=== PATIENT | male | born 1965 | race Caucasian/White ===

== ENCOUNTER 2018-07-07 00:11 | Emergency (ER) | payer BC, OTHER ==
[~2018-07-07] VITALS: Ht 188 cm; Wt 119.3 kg
[~2018-07-07 00:11] MED LIST: PROTONIX PO; SYNTHROID200 MCG PO; VYTORIN 10-101 EACH PO; ZOLOFT PO
[2018-07-07] MEDS ORDERED: KETOROLAC TROMETHAMINE 60 MG/2 ML VIAL IM ONE (01:00)
--- NOTE | 2018-07-07 03:05 | Diagnostic Imaging Report ---
EXAM: CT right knee WITHOUT contrast INDICATION: Right knee pain COMPARISON: None. TECHNIQUE: The right knee was scanned utilizing a multidetector helical scanner without administration of IV contrast. Absence of intravenous contrast decreases sensitivity for detection of focal lesions and vascular pathology. Coronal and sagittal reformations were obtained. Routine protocol was performed. IV CONTRAST: None COMPLICATIONS: None RADIATION DOSE: Total DLP: 173.2 mGy*cm Estimated effective dose: (DLP x 0.015 x size factor) mSv Dose modulation, iterative reconstruction, and/or weight based adjustment of the mA/kV was utilized to reduce the radiation dose to as low as reasonably achievable. FINDINGS: BONES: No acute osseous abnormalities. No gross evidence of hardware fracture or loosening on limited block inspector radiographs SOFT TISSUES: Extensive streak artifacts from right knee arthroplasty markedly limits evaluation of the soft tissues about the knee. Partially visualized small suprapatellar effusion. IMPRESSION: 1. Limited exam secondary to extensive artifacts from right knee arthroplasty. 2. Partially visualized suprapatellar joint effusion. 3. No definite acute osseous abnormality. Signed by: DR. Antolin Ellis MD on 07/07/2018 3:02 AM
[2018-07-07] MEDS ORDERED: NAPROXEN250 MG PO (03:24)
--- NOTE | 2018-07-07 03:26 | NUR ---
[facility] CALLED FOR DOPPLER
[2018-07-07 05:10] VITALS: BP 101/75
== END 2018-07-07 05:12 | disposition home or self-care (01) ==
LOC: ER 00:11
DX: M25.561 Pain in right knee (principal); M79.661 Pain in right lower leg; M25.461 Effusion, right knee; F17.210 Nicotine dependence, cigarettes, uncomplicated
CPT/HCPCS: 73700; 93971; 96372; 99283; J1885

== ENCOUNTER → 2020-12-09 | Day surgery (SDC) | payer BC, OTHER ==
[~2020-12-09] MED LIST changes: +CRESTOR5 MG PO; +FLOMAX0.4 MG PO; +GLUCAGON FOR INJ 1 MG VIAL ONE; +HYOSCYAMINE SULFATE 0.5 MG/ML INJ ONE; +LIDOCAINE HCL 2% LOCAL INJ 5 ML SDV VIAL INJ ONE; +NAPROXEN250 MG PO; +PROPOFOL IV EMULSION 10 MG/ML 20 ML VIAL ONE
[2020-12-09 14:40] VITALS: BP 112/82
[2020-12-09 15:15] LABS: WBC,FECAL (FECAL LACTOFERRIN) NEGATIVE (NEGATIVE)
[2020-12-10 14:02] LABS: C DIFFICILE TOXIN A&B AMP PROB NEGATIVE (NEGATIVE)
== END | disposition home or self-care (01) ==
LOC: OR 10:04
PROVIDERS: ATTEND Internal Medicine Gastroenterology
DX: K52.9 Noninfective gastroenteritis and colitis, unspecified (principal); D12.3 Benign neoplasm of transverse colon; D12.5 Benign neoplasm of sigmoid colon; K62.1 Rectal polyp; K29.70 Gastritis, unspecified, without bleeding; K21.9 Gastro-esophageal reflux disease without esophagitis; K63.89 Other specified diseases of intestine; K64.8 Other hemorrhoids; E78.5 Hyperlipidemia, unspecified; E03.9 Hypothyroidism, unspecified; N40.0 Benign prostatic hyperplasia without lower urinary tract symptoms; I25.10 Atherosclerotic heart disease of native coronary artery without angina pectoris; F41.9 Anxiety disorder, unspecified; F32.9 Major depressive disorder, single episode, unspecified; F17.210 Nicotine dependence, cigarettes, uncomplicated; Z88.6 Allergy status to analgesic agent; Z88.0 Allergy status to penicillin; Z01.810 Encounter for preprocedural cardiovascular examination; Z01.812 Encounter for preprocedural laboratory examination; Z20.822 Contact with and (suspected) exposure to COVID-19; Z68.33 Body mass index [BMI] 33.0-33.9, adult
CPT/HCPCS: 43239; 45380; 45384; 45385; 83630; 83993; 87045; 87177; 87328; 87493; 93005; J1610; J1980; J2001; J2704; U0002; 45378

== ENCOUNTER 2022-01-23 09:05 | Emergency (ER) | payer OTHER ==
[~2022-01-23] VITALS: Ht 188 cm; Wt 119.3 kg
[~2022-01-23 09:05] MED LIST changes: -GLUCAGON FOR INJ 1 MG VIAL ONE; -HYOSCYAMINE SULFATE 0.5 MG/ML INJ ONE; -LIDOCAINE HCL 2% LOCAL INJ 5 ML SDV VIAL INJ ONE; -PROPOFOL IV EMULSION 10 MG/ML 20 ML VIAL ONE
[2022-01-23] MEDS ORDERED: MECLIZINE HCL 12.5 MG TAB PO ONE (09:30)
[2022-01-23 09:38] LABS: BASOPHILS # (AUTO) 0.1 (0.0-0.1); BASOPHILS % 0.9 % (0.0-1.0); EOSINOPHILS # (AUTO) 0.3 (0.0-0.4); EOSINOPHILS % 3.5 % (0.0-6.0); HEMATOCRIT 46.2 % (38.2-49.6); HEMOGLOBIN 15.6 g/dL (14.0-18.0); LYMPHOCYTES # (AUTO) 1.2 (1.0-3.2); LYMPHOCYTES % 14.5 % (18.0-39.1); MEAN CORPUSCULAR HEMOGLOBIN 30.4 pg (28-32); MEAN CORPUSCULAR HGB CONC 33.8 g/dL (31-35); MEAN CORPUSCULAR VOLUME 89.9 fL (81-99); MONOCYTES # (AUTO) 0.6 (0.2-0.8); NEUTROPHILS # (AUTO) 6.2 (2.1-6.9); NEUTROPHILS % 73.9 % (38.7-80.0); PLATELET COUNT 230 x10e3/uL (140-360); RED BLOOD COUNT 5.14 x10e6/uL (4.3-5.7)
[2022-01-23 10:01] LABS: ALBUMIN 4.4 g/dL (3.5-5.0); ALBUMIN/GLOBULIN RATIO 1.4 (0.8-2.0); ANION GAP 17.1 mmol/L (8-16); CALCIUM 9.3 mg/dL (8.4-10.2); CREATININE, SERUM 0.93 mg/dL (0.72-1.25); POTASSIUM 4.1 mmol/L (3.5-5.1)
[2022-01-23 10:03] LABS: LIPASE 24 U/L (8-78)
[2022-01-23] MEDS ORDERED: MECLIZINE HCL25 MG PO (10:39)
[2022-01-23 11:19] VITALS: BP 129/77
== END 2022-01-23 11:00 | disposition home or self-care (01) ==
LOC: ER 09:10
DX: R11.0 Nausea (principal); R42 Dizziness and giddiness; K21.9 Gastro-esophageal reflux disease without esophagitis; E03.9 Hypothyroidism, unspecified; E78.5 Hyperlipidemia, unspecified; F41.9 Anxiety disorder, unspecified; Z79.899 Other long term (current) drug therapy
CPT/HCPCS: 36415; 80053; 83690; 84484; 85025; 93005; 94760; 99284; J8597